=== PATIENT | male | born 1995 | race Caucasian/White ===

== ENCOUNTER 2020-03-09 21:41 | Emergency (ER) | payer OTHER ==
[2020-03-09 21:48] VITALS: RESP 18; TEMP 98.7
[2020-03-09] MEDS ORDERED: SODIUM CHLORIDE 0.9% 1,000 ML IV STA (22:04)
[2020-03-09] MEDS ORDERED: ONDANSETRON 4 MG/2 ML VIAL IVP STA (22:05)
[2020-03-09] MEDS ORDERED: HYDROmorphone 0.5 MG/0.5 ML SYRINGE IVP STA (22:05)
--- NOTE | 2020-03-09 22:11 | ED ---
Abdominal Pain HPI - General Chief Complaint: Abdominal Pain Stated Complaint: Abd Pain Time Seen by Provider: 03/09/20 21:50 Source: patient, family, RN notes reviewed Mode of arrival: ambulatory Limitations: no limitations - History of Present Illness Initial Comments: This a 24-year-old male presents emergency department to complaint of severe right lower quadrant abdominal pain. Patient states pain initially started around 4:00 this afternoon. Patient states has progressed. Patient does admit to nausea vomiting. Patient states she's had some sweats but no definite fever. Patient states all his pain is in the right lower quadrant worse with movement he states it is better when he spent over. Patient denies any diarrhea constipation no chest pain or shortness breathpast multiple history no dysuria no hematuria - Related Data Allergies Allergy/AdvReac Type Severity Reaction Status Date / Time No Known Allergies Allergy Verified 03/09/20 21:48 Review of Systems ROS Statement: Those systems with pertinent positive or pertinent negative responses have been documented in the HPI. ROS Other: All systems not noted in ROS Statement are negative. Past Medical History Past Medical History: No Reported History History of Any Multi-Drug Resistant Organisms: None Reported Past Surgical History: No Surgical Hx Reported Past Psychological History: No Psychological Hx Reported Smoking Status: Never smoker Past Alcohol Use History: Occasional Past Drug Use History: None Reported General Exam Limitations: no limitations General appearance: alert, in no apparent distress Head exam: Present: atraumatic, normocephalic, normal inspection Eye exam: Present: normal appearance, PERRL, EOMI. Absent: scleral icterus, conjunctival injection, periorbital swelling ENT exam: Present: normal exam, mucous membranes moist Neck exam: Present: normal inspection, full ROM. Absent: tenderness, meningismus, lymphadenopathy Respiratory exam: Present: normal lung sounds bilaterally. Absent: respiratory distress, wheezes, rales, rhonchi, stridor Cardiovascular Exam: Present: regular rate, normal rhythm, normal heart sounds. Absent: systolic murmur, diastolic murmur, rubs, gallop, clicks GI/Abdominal exam: Present: soft, tenderness (Moderate right lower quadrant), normal bowel sounds. Absent: distended, guarding, rebound, rigid Back exam: Absent: CVA tenderness (R), CVA tenderness (L) Neurological exam: Present: alert, oriented X3 Skin exam: Present: warm, dry, intact, normal color. Absent: rash Course Vital Signs 03/09/20 03/09/20 21:44 23:20 Temperature 98.7 F Pulse Rate 50 L 52 L Respiratory 18 18 Rate Blood Pressure 151/78 136/85 O2 Sat by Pulse 100 100 Oximetry Medical Decision Making - Medical Decision Making CT was reviewed labs reviewed there is no significant findings. Patient does have some bowel gas distention. May be causing his pain, pain is improved at this time will be discharged stable condition we discussed possibility abdominal wall strain as needed did have some pain while playing soccer today. - Lab Data Result diagrams: 03/09/20 22:16 03/09/20 22:16 Lab Results 03/09/20 03/09/20 03/09/20 Range/Units 22:16 22:16 22:16 WBC 8.5 (3.8-10.6) k/uL RBC 5.05 (4.30-5.90) m/uL Hgb 14.8 (13.0-17.5) gm/dL Hct 44.2 (39.0-53.0) % MCV 87.6 (80.0-100.0) fL MCH 29.3 (25.0-35.0) pg MCHC 33.4 (31.0-37.0) g/dL RDW 12.1 (11.5-15.5) % Plt Count 240 (150-450) k/uL Neutrophils % 74 % Lymphocytes % 19 % Monocytes % 5 % Eosinophils % 1 % Basophils % 0 % Neutrophils # 6.3 (1.3-7.7) k/uL Lymphocytes # 1.6 (1.0-4.8) k/uL Monocytes # 0.4 (0-1.0) k/uL Eosinophils # 0.1 (0-0.7) k/uL Basophils # 0.0 (0-0.2) k/uL Sodium 138 (137-145) mmol/L Potassium 4.2 (3.5-5.1) mmol/L Chloride 103 (98-107) mmol/L Carbon Dioxide 26 (22-30) mmol/L Anion Gap 9 mmol/L BUN 19 (9-20) mg/dL Creatinine 1.02 (0.66-1.25) mg/dL Est GFR (CKD-EPI)AfAm >90 (>60 ml/min/1.73 sqM) Est GFR (CKD-EPI)NonAf >90 (>60 ml/min/1.73 sqM) Glucose 109 H (74-99) mg/dL Plasma Lactic Acid Fantasma 1.5 (0.7-2.0) mmol/L Calcium 9.8 (8.4-10.2) mg/dL Total Bilirubin 0.4 (0.2-1.3) mg/dL AST 25 (17-59) U/L ALT 17 (4-49) U/L Alkaline Phosphatase 95 (38-126) U/L Total Protein 7.5 (6.3-8.2) g/dL Albumin 4.7 (3.5-5.0) g/dL Amylase 78 (30-110) U/L Lipase 231 (23-300) U/L Disposition Clinical Impression: Abdominal pain Disposition: HOME SELF-CARE Condition: Stable Instructions (If sedation given, give patient instructions): Abdominal Pain (ED) Additional Instructions: Please return to the Emergency Department if symptoms worsen or any other concerns. Is patient prescribed a controlled substance at d/c from ED?: No Referrals: None,Stated [Primary Care Provider] - 1-2 days Time of Disposition: 23:27
[2020-03-09 22:25] LABS: Basophils % (A) 0 %; Eosinophils # (A) 0.1 k/uL (0-0.7); Eosinophils % (A) 1 %; HCT 44.2 % (39.0-53.0); HGB 14.8 gm/dL (13.0-17.5); Lymphocytes # (A) 1.6 k/uL (1.0-4.8); Lymphocytes % (A) 19 %; MCH 29.3 pg (25.0-35.0); MCHC 33.4 g/dL (31.0-37.0); MCV 87.6 fL (80.0-100.0); Mean Platelet Volume 6.7; Monocytes # (A) 0.4 k/uL (0-1.0); Monocytes % (A) 5 %; Neutrophils # (A) 6.3 k/uL (1.3-7.7); Neutrophils % (A) 74 %; Platelet Count 240 k/uL (150-450); RBC 5.05 m/uL (4.30-5.90); RDW 12.1 % (11.5-15.5); WBC 8.5 k/uL (3.8-10.6)
[2020-03-09 22:34] LABS: ALT 17 U/L (4-49); AST 25 U/L (17-59); African American GFR (CKD) >90 (>60 ml/min/1.73 sqM); Albumin 4.7 g/dL (3.5-5.0); Alkaline Phosphatase 95 U/L (38-126); Amylase 78 U/L (30-110); Anion Gap 9 mmol/L; Blood Urea Nitrogen 19 mg/dL (9-20); Calcium 9.8 mg/dL (8.4-10.2); Carbon Dioxide 26 mmol/L (22-30); Chloride 103 mmol/L (98-107); Glucose 109 mg/dL (74-99); Non-African American GFR(CKD) >90 (>60 ml/min/1.73 sqM); Potassium 4.2 mmol/L (3.5-5.1); Sodium 138 mmol/L (137-145); Total Bilirubin 0.4 mg/dL (0.2-1.3); Total Protein 7.5 g/dL (6.3-8.2)
--- NOTE | 2020-03-09 23:17 | CT ---
EXAMINATION TYPE: CT abdomen pelvis w con DATE OF EXAM: 03/09/2020 COMPARISON: 11/17/2008 HISTORY: RLQ ABD PAIN CT DLP: 917.60 mGycm Automated exposure control for dose reduction was used. CONTRAST: Performed with IV Contrast, patient injected with 100 mL of Isovue 300. Images were obtained from the diaphragm to the floor the pelvis with IV contrast. Lung bases are clear. There is no pleural effusion. Heart size is normal. There is no pericardial eff usion. Liver spleen stomach pancreas gallbladder appear normal. Bile ducts are not dilated. There is no adre nal mass. Kidneys show satisfactory contrast opacification. There is no hydronephrosis. Delayed image s show normal renal excretion. There is no retroperitoneal adenopathy. Ureters are not dilated. Bladd er distends smoothly. There is no inguinal hernia. There is small amount of free fluid in the pelvis. There is no mesenteric edema. There is no ascites or free air. There is no bowel obstruction. Appendix is medial and partly filled with air and appears normal. Lumbar vertebra have normal alignment. There is no compression fracture. Posterior elements are intac t. Bony pelvis is intact. Hip joints appear normal. IMPRESSION: Normal appendix. No renal stone or obstruction. There is small amount of low-density free fluid in the pelvis of uncertain significance.
[2020-03-09 23:24] VITALS: BP 136/85; PULSE 52
[2020-03-09 23:46] LABS: Amorphous Sediment,Urine Rare /hpf; Appearance,Urine Turbid (Clear); Bilirubin,Urine Negative (Negative); Blood,Urine Negative (Negative); Color,Urine Yellow; Glucose,Urine (UA) Negative (Negative); Ketones,Urine Negative (Negative); Leukocyte Esterase,Urine Negative (Negative); Nitrite,Urine Negative (Negative); PH, Urine 7.5 (5.0-8.0); Protein,Urine Negative (Negative); RBC,Urine 3 /hpf (0-5); Specific Gravity,Urine 1.044 (1.001-1.035); Urobilinogen,Urine <2.0 mg/dL (<2.0)
== END 2020-03-09 23:43 | disposition home or self-care (01) ==
LOC: EC 21:41
DX: R10.31 Right lower quadrant pain (principal); K63.89 Other specified diseases of intestine
CPT/HCPCS: 36415; 80053; 82150; 83605; 83690; 85025; 81001; 74177; 99284; 96374; 96375; 96361; J2405; J1170; Q9967

== ENCOUNTER 2022-09-12 15:22 | Emergency (ER) | payer OTHER ==
[2022-09-12] MEDS ORDERED: IBUPROFEN 800 MG TAB PO STA (15:36)
[2022-09-12] MEDS ORDERED: KETOROLAC 15 MG/ML 1 ML VIAL IM STA (15:37)
[2022-09-12] MEDS ORDERED: LIDOCAINE 1% INJ 10MG/ML (30 ML VIAL-PF) SQ ONE (15:43)
--- NOTE | 2022-09-12 16:10 | XR ---
EXAMINATION TYPE: XR finger LT DATE OF EXAM: 09/12/2022 4:05 PM INDICATION: Patient age:Male; 26 years old; Reason for study: dislocation concern; PHH. COMPARISON: None TECHNIQUE: Frontal, lateral and oblique views of the fifth digit of the left hand were obtained. FINDINGS: Acute dorsal dislocation of the fifth digit at the PIP joint. No acute fracture identified. Mild soft tissue swelling in this region. No radiopaque foreign body. IMPRESSION: Acute dorsal dislocation of the fifth digit at the PIP joint. No acute fracture.
--- NOTE | 2022-09-12 16:33 | ED ---
Upper Extremity HPI - General Chief Complaint: Extremity Injury, Upper Stated Complaint: lt hand - finger injury Time Seen by Provider: 09/12/22 15:33 Source: patient, family Mode of arrival: ambulatory Limitations: no limitations - History of Present Illness Initial Comments: Patient is a 26-year-old male presenting with left pinky dislocation. Patient fell during soccer. Patient has pain in his pinky otherwise denies injury. Denies numbness and tingling. - Related Data Previous Rx's Medication Instructions Recorded Ibuprofen [Motrin] 800 mg PO Q8HR PRN #30 tab 09/12/22 Allergies Allergy/AdvReac Type Severity Reaction Status Date / Time No Known Allergies Allergy Verified 09/12/22 15:44 Review of Systems ROS Statement: Those systems with pertinent positive or pertinent negative responses have been documented in the HPI. ROS Other: All systems not noted in ROS Statement are negative. Past Medical History Past Medical History: No Reported History History of Any Multi-Drug Resistant Organisms: None Reported Past Surgical History: No Surgical Hx Reported Past Psychological History: No Psychological Hx Reported Smoking Status: Never smoker Past Alcohol Use History: Occasional Past Drug Use History: None Reported General Exam Limitations: no limitations Course Vital Signs 09/12/22 09/12/22 15:27 16:40 Temperature 98 F 98.2 F Pulse Rate 75 55 L Respiratory 20 14 Rate Blood Pressure 111/62 105/70 O2 Sat by Pulse 98 100 Oximetry Procedures - Orthopedic Joint Reduction Joint #1 Consent Obtained: verbal consent Side: left Joint Reduction Location: other (pinky) Analgesia: digital block Technique Used: direct manipulation Post-Reduction Neuro Exam: intact Post-Reduction Vascular Exam: intact Splint Applied: Yes Medical Decision Making - Medical Decision Making Was pt. sent in by a medical professional or institution (, PA, [employer], urgent care, hospital, or longterm...) When possible be specific @ -No Did you speak to anyone other than the patient for history (EMS, parent, family, police, friend...)? What history was obtained from this source @ -No Did you review nursing and triage notes (agree or disagree)? Why? @ -I reviewed and agree with nursing and triage notes Were old charts reviewed (outside hosp., previous admission, EMS record, old EKG, old radiological studies, urgent care reports/EKG's, longterm records)? Report findings @ -No old charts were reviewed Differential Diagnosis (chest pain, altered mental status, abdominal pain women, abdominal pain men, vaginal bleeding, weakness, fever, dyspnea, syncope, headache, dizziness, GI bleed, back pain, seizure, CVA, palpatations, mental health)? @ -fracture, dislocation, contusion EKG interpreted by me (3pts min.). @ -As above X-rays interpreted by me (1pt min.). @ -Yes, left pinky xray shows acute dislocation at the PIP joint CT interpreted by me (1pt min.). @ -None done U/S interpreted by me (1pt. min.). @ -None done What testing was considered but not performed or refused? (CT, X-rays, U/S, labs)? Why? @ -None What meds were considered but not given or refused? Why? @ -None Did you discuss the management of the patient with other professionals (padmini vee i.e. , PA, [employer], lab, RT, psych nurse, perinatal social worker, provider relations consultant, teacher, juvenile corrections officer, business case analyst)? Give summary @ -No Was smoking cessation discussed for >3mins.? @ -No Was critical care preformed (if so, how long)? @ -No Were there social determinants of health that impacted care today? How? (Homelessness, low income, unemployed, alcoholism, drug addiction, transportation, low edu. Level, literacy, decrease access to med. care, shelter, rehab)? @ -No Was there de-escalation of care discussed even if they declined (Discuss DNR or withdrawal of care, Hospice)? DNR status @ -No What co-morbidities impacted this encounter? (DM, HTN, Smoking, COPD, CAD, Cancer, CVA, ARF, Chemo, Hep., AIDS, mental health diagnosis, sleep apnea, morbid obesity)? @ -None Was patient admitted / discharged? Hospital course, mention meds given and route, prescriptions, significant lab abnormalities, going to OR and other pertinent info. @ -Patient presenting with dislocation of left pinky PIP joint. Joint successfully reduced. Patient has full range of motion postreduction. Neurovascularly intact. Patient declines post reduction xray he is eager to go home the joint was kim taped per request of patient he was discharged. Undiagnosed new problem with uncertain prognosis? @ -No Drug Therapy requiring intensive monitoring for toxicity (Heparin, Nitro, Insulin, Cardizem)? @ -No Were any procedures done? @ -No Diagnosis/symptom? @ -dislocation of PIP joint of pinky finger Acute, or Chronic, or Acute on Chronic? @ -acute Uncomplicated (without systemic symptoms) or Complicated (systemic symptoms)? @ -uncomplicated Side effects of treatment? @ -No Exacerbation, Progression, or Severe Exacerbation? @ -No Poses a threat to life or bodily function? How? (Chest pain, [place], [place], pneumonia, PE, COPD, DKA, ARF, appy, cholecystitis, CVA, Diverticulitis, Homicidal, Suicidal, threat to staff... and all critical care pts) @ -No Dr. Hill is my attending Disposition Clinical Impression: Dislocation of proximal interphalangeal joint of left little finger Disposition: HOME SELF-CARE Condition: Good Instructions (If sedation given, give patient instructions): Finger Dislocation (ED) Additional Instructions: Take medication as directed. Rest and ice injury. Follow up with PCP in 1-2 days. Return to the ED if you experience new, worsening, or concerning symptoms. Prescriptions: Ibuprofen [Motrin] 800 mg PO Q8HR PRN #30 tab PRN Reason: Pain Is patient prescribed a controlled substance at d/c from ED?: No Referrals: Josh Avila MD [Primary Care Provider] - 1-2 days
[2022-09-12 16:41] VITALS: BP 105/70; PULSE 55; RESP 14; TEMP 98.2
== END 2022-09-12 16:35 | disposition home or self-care (01) ==
LOC: EC 15:22
DX: S63.287A Dislocation of proximal interphalangeal joint of left little finger, initial encounter (principal); W19.XXXA Unspecified fall, initial encounter; Y93.66 Activity, soccer
CPT/HCPCS: 73140; 26770; 99283; 96372; J2001; J1885